=== PATIENT | female | born 1980 | race Caucasian/White ===

== ENCOUNTER 2018-10-12 17:22 | Emergency (ER) | payer SELFPAY ==
[~2018-10-12] VITALS: Ht 144.8 cm; Wt 52.2 kg
[2018-10-12 17:24] VITALS: BP 132/72
--- NOTE | 2018-10-12 17:49 | NUR ---
PT TO ER BED 2
--- NOTE | 2018-10-12 17:52 | NUR ---
38/F BIB SELF C/O L POSTERIOR SHOULD/NECK MUSCLE SPASM WITH 9/10 X4 DAYS. PT TREATING WITH TYLENOL WITH TYLENOL WITH NO RELIEF. PT REPORTS L ARM IS "HEAVY". PT DENIES TRAMA. NO VISIBLE EDEMA, ERYTHEMA, OR DEFORMITY. + CMS. PATIENT POSITIONED FOR COMFORT; HOB ELEVATED; BEDRAILS UP X2; BED DOWN. ER MD MADE AWARE OF PT STATUS.
[2018-10-12 18:07] VITALS: BP 132/72
--- NOTE | 2018-10-12 18:07 | NUR ---
LEFT WITHOUT BEING SEEN BY DR MCDANIEL.
== END 2018-10-12 18:07 | disposition left against medical advice (07) ==
LOC: MED 17:22
DX: M62.838 Other muscle spasm (principal); Z53.21 Procedure and treatment not carried out due to patient leaving prior to being seen by health care provider